=== PATIENT | female | born 1980 | race Asian ===

== ENCOUNTER 2018-02-13 06:13 | Day surgery (SDC) | payer OTHER ==
[2018-02-06 12:11] LABS: Urine Appearance CLEAR; Urine Bilirubin NEGATIVE (NEG); Urine Blood TRACE (NEG); Urine Color YELLOW; Urine Glucose NEGATIVE (NEG); Urine Protein NEGATIVE (NEG); Urine Urobilinogen 0.2 mg/dL (0.2-1.0); Urine pH 5.5 (5.0-7.0)
[2018-02-06 12:12] LABS: Absolute Lymphocytes (CBC) 1.8 K/uL (0.7-4.9); Absolute Monocytes 0.4 K/uL (0.1-1.3); Absolute Neutrophil 4.2 K/uL (1.8-8.0); Basophils % 0.5 % (0-1.3); Eosinophils % 1.8 % (0-4.4); Hematocrit 45.4 % (36.0-45.0); Lymphocytes % 27.9 % (15.3-44.8); MCH 29.8 pg (27.0-35.0); MCV 89.7 fL (80-100); MPV 7.7 fL (7.6-11.3); Monocytes % 6.3 % (3.3-12.3); RBC Red Blood Cell Count 5.06 M/uL (3.86-4.86)
[2018-02-06 12:13] LABS: Urine Microscopic Reflex ORDER UMIC
[2018-02-06 12:23] LABS: Urine Bacteria <20 /HPF (<20); Urine Culture Reflex Order NOT NEEDED; Urine RBC <5 /HPF (NONE SEEN)
--- NOTE | 2018-02-06 15:27 | EKG ---
Test Date: 2018-02-06 Test Time: 11:40:32 Thread Separator: ALIA MEASUREMENT RESULTS: Intervals: Rate: 79 OR: 164 QRSD: 82 QT: 374 QTc: 428 [place]: P: 44 OR: 164 QRS: 57 T: 11 INTERPRETIVE STATEMENTS: Normal sinus rhythm Normal ECG No previous ECG available for comparison Electronically Signed On 02-06-18 15:25:41 CDT by Bobby Mandujano
[2018-02-13 06:44] LABS: Specific Gravity 1.025 (1.005-1.030)
[2018-02-13] MEDS ORDERED: Ringers Lactate 1,000 ML IV ONE ×2 (06:46→10:43)
[2018-02-13] MEDS ORDERED: SCOPOLAMINE HYDROBROMIDE PATCH TD ONE (06:46)
[2018-02-13] MEDS ORDERED: PROPOFOL 200 MG/20 ML VIAL IV ONE (06:55)
[2018-02-13] MEDS ORDERED: ROCURONIUM 50 MG/5 ML VIAL IV ONE ×2 (06:56→09:20)
[2018-02-13] MEDS ORDERED: DEXAMETHASONE 10 MG/ML VIAL ONE (06:57)
[2018-02-13] MEDS ORDERED: FENTANYL CITR 250 MCG/5 ML ONE (06:57)
[2018-02-13] MEDS ORDERED: GLYCOPYRROLATE 0.2 MG/ML SYR ONE (06:57)
[2018-02-13] MEDS ORDERED: LIDOCAINE 1% MPF 2 ML AMPULE ONE (06:58)
[2018-02-13] MEDS ORDERED: MIDAZOLAM HCL 2 MG/2 ML INJ ONE (06:58)
[2018-02-13] MEDS ORDERED: NEOSTIGMINE 1 MG/ML -5 ML SYRINGE ONE (06:58)
[2018-02-13] MEDS ORDERED: ONDANSETRON HCL 40 MG/20 ML VIAL ONE ×2 (06:58→10:33)
[2018-02-13] MEDS ORDERED: NA CHLORIDE 0.9% 1,000 ML ONE ×2 (07:01→07:15)
[2018-02-13] MEDS ORDERED: VASOPRESSIN 20 UNIT/ML VIAL ONE ×2 (07:58→08:43)
[2018-02-13] MEDS ORDERED: NA CHLORIDE 0.9% 50 ML ONE (07:58)
[2018-02-13] MEDS ORDERED: NS 0.9% VIAL 10 ML ONE (08:45)
[2018-02-13] MEDS ORDERED: MORPHINE 10 MG/ML VIAL ONE (09:59)
[2018-02-13] MEDS ORDERED: KETOROLAC 30 MG/ML INJ ONE (10:32)
[2018-02-13] MEDS ORDERED: MEPERIDINE HCL 25 MG/0.5 ML ONE (11:45)
[2018-02-13] MEDS ORDERED: PROMETHAZINE 25 MG/ML VIAL ONE (11:45)
[2018-02-13] MEDS ORDERED: HYDROCODONE/APAP 5/325 MG TAB ONE (13:05)
--- NOTE | 2018-05-07 01:21 | OP ---
Date of Procedure: 02/13/2018 Surgeon: Gerri Salcedo MD Washer Blanket: Nancy Marinelli. Preoperative Diagnosis: Abnormal uterine bleeding (menorrhagia, leiomyomata). Postoperative Diagnosis: Abnormal uterine bleeding (menorrhagia, leiomyomata, and endometrial polyps ). Procedures Performed: 1.Hysteroscopy, polypectomy, dilation and curettage. 2.Laparoscopy and myomectomy, large compound myoma with multiple leiomyomata included within this. They had to be all removed through the same incision, placed in a specimen bag, and morcellated for e xtraction through the small ports. Anesthesia: General endotracheal. Estimated Blood Loss: 200. Urine Output: 200. Specimens: Endometrial polyps, curettings, and leiomyomata. Fluids In: 2 L of Ringer's lactate. Condition: Stable. Indications: The patient is 37-year-old with heavy menstrual bleeding, 0, decided to preserv e her fertility. This patient has been seen in the past as well and diagnosed with fibroids, which c мария back without any followup or treatment as recommended in the past. Ultrasound was repeated. Mul tiple fibroids were seen. No concerning other features seen on ultrasound. All the options were dis cussed with the patient including the possibility of an adenomyoma or leiomyoma, multiple leiomyomata , leading to her bleeding. However, endometrial sampling has not been done so at the time of the mark mectomy that we would do a hysteroscopy and endometrial sampling after cavity visualization and perfo rmance of myomectomy to preserve the uterus and fertility. She fully initiated that. If there was a n undiagnosed leiomyosarcoma, then this would need further surgery in the future; however for removal of the specimen, this would be placed in a specimen bag and removed; however, there is always a miller ce of spread from the leiomyosarcoma even while the removal of the myoma was being performed. Procedure In Detail: After consenting, the patient was taken back to the OR, placed in supine fashio n on the operating table and general anesthesia was given, she was placed in the dorsal lithotomy pos ition. Pelvic exam was performed. Uterus was found to be enlarged with a large leiomyoma. The abdo men, vulva, vagina, and perineum were all prepped and draped in a sterile fashion. Early was placed to drain the bladder and attached to a Early drainage bag. A speculum was used to expose the cervix. Anterior lip was grasped with 2 Allis clamps. Diagnostic hysteroscopy with a SlimLine hysteroscope and normal saline was conducted. Upon entering the uterine cavity, polyps were visualized. There w ere at least 3 polyps, 1 at the left cornual and the other 2 in the right lateral wall and posterior wall. So, decision was made to perform a polypectomy. The diagnostic sheath was changed to an opera tive sheath, and using the polyp scissors, the polyps were cut at their bases and they were extracted and then D and C were performed. Diagnostic VCare was introduced into the uterus at this time and t his area was draped and that was fixed in place. A 10 mm umbilical skin incision was made with a sca lpel. The fascia was incised with the scalpel that was well tagged on both sides with 0 Vicryl sutur e. Peritoneum was entered bluntly and S retractor was placed and Cary was introduced. The site of entry was checked. Liver and gallbladder appeared to be unremarkable. Multiple leiomyomata were se en on the uterus. The ovaries were both normal and the tubes appeared to be unremarkable. Most of t he myoma were posterior fundal mass and extension on the right side as well as others on the left. S o, plan was made to make an incision on the serosa and the muscle. There was also a fibroid that was on the anterior wall of the uterus, which had to be removed separately, so an incision was made on t he fundus. A monopolar fine tip needle device was used to make the incision all the way to the sheat h of the myoma. A 10 mm tenaculum was used through the suprapubic 10 mm port which was placed before the start of the procedure along with two 5 mm ports on each side, the right and left lower quadrant s. Then using the push-spread technique as well as using the monopolar, the myomata were all separat ed from the underlying tissues and they were removed. The base was cauterized with the help of the b ipolar. Monopolar needle was again used to make an incision transversely on the myoma in the lower s egment. This was also removed using the push-spread technique after all the myomata were removed. T here appeared to be an extension all the way into the endometrial cavity. A three-layer closure was done with the help of a PDS suture on the inner layer of the middle ear which was most of the myometr ium and then on the top in a continuous running locked fashion with the help of the barbed suture. A fter all this was done, Interceed was placed on the top. Thorough irrigation and suction were perfor med. There was 200 mL of blood. The removal of all myomata took some time and after everything was done, the specimens were placed inside the specimen retrieval bag and they were brought out through t he suprapubic incision with a slight extension and direct morcellation. The ports were removed under direct vision, gas was desufflated, and incision was closed after the specimens were retrieved. The fascia was closed at the suprapubic site with the help of a continuous running 0 Vicryl. The skin w as closed with the help of subcuticular sutures. The fascia at the umbilicus was closed with the hel p of a tag sutures placed for the placement of Cary. Then, the skin incisions on all the sort of 3 ports were closed with the help of 4-0 Monocryl. VCare was removed, Early was removed, and the mary ent was recovered from anesthesia after instrument, needle, and sponge counts x3 were correct at the end of the case. The patient tolerated the procedure well. She will follow up with me in 1 week for postop. No antibiotics were given. SCDs were started before the case was started. JACOB/TAMI Voice ID: [id number] Report ID: [id number]
== END 2018-02-13 14:50 | disposition home or self-care (01) ==
LOC: OR 06:13
PROVIDERS: ATTEND Obstetrics & Gynecology
PROC: 0UDB7ZX Extraction of Endometrium, Via Natural or Artificial Opening, Diagnostic (ICD-10-PCS; 2018-02-13)
PROC: 0UJD8ZZ Inspection of Uterus and Cervix, Via Natural or Artificial Opening Endoscopic (ICD-10-PCS; 2018-02-13)
PROC: 0UB94ZZ Excision of Uterus, Percutaneous Endoscopic Approach (ICD-10-PCS; 2018-02-13)
PROC: 0UB97ZX Excision of Uterus, Via Natural or Artificial Opening, Diagnostic (ICD-10-PCS; principal; 2018-02-13 07:30)
DX: D25.9 Leiomyoma of uterus, unspecified (principal); N84.0 Polyp of corpus uteri
CPT/HCPCS: 36415; 81003; 81015; 81025; 85025; 86850; 86900; 86901; 88305; 93005; J1100; J2001; J2175; J2250; J2405; J2550; J2710; J7030

== ENCOUNTER 2018-05-24 09:23 | Day surgery (SDC) | payer OTHER ==
[2018-05-21 14:11] LABS: Urine Appearance CLEAR; Urine Bilirubin NEGATIVE (NEG); Urine Blood NEGATIVE (NEG); Urine Color YELLOW; Urine Glucose NEGATIVE (NEG); Urine Protein NEGATIVE (NEG); Urine Urobilinogen 0.2 mg/dL (0.2-1.0); Urine pH 5.5 (5.0-7.0)
[2018-05-21 14:12] LABS: Urine Microscopic Reflex ORDER UMIC
[2018-05-21 14:24] LABS: Urine Bacteria <20 /HPF (<20); Urine RBC NONE SEEN /HPF (NONE SEEN)
[2018-05-21 14:25] LABS: Urine Culture Reflex Order REFLEXED
[2018-05-21 14:34] LABS: Absolute Lymphocytes (CBC) 2.1 K/uL (0.7-4.9); Absolute Monocytes 0.4 K/uL (0.1-1.3); Basophils % 0.2 % (0-1.3); Eosinophils % 1.9 % (0-4.4); Hematocrit 44.3 % (36.0-45.0); Lymphocytes % 24.1 % (15.3-44.8); MCH 30.8 pg (27.0-35.0); MCV 88.9 fL (80-100); MPV 7.7 fL (7.6-11.3); Monocytes % 4.6 % (3.3-12.3); RBC Red Blood Cell Count 4.98 M/uL (3.86-4.86)
[2018-05-24] MEDS ORDERED: Ringers Lactate 1,000 ML IV ONE ×2 (09:42→14:35)
[2018-05-24] MEDS ORDERED: SCOPOLAMINE HYDROBROMIDE PATCH TD ONE (09:42)
[2018-05-24] MEDS ORDERED: ROCURONIUM 50 MG/5 ML VIAL IV ONE (10:46)
[2018-05-24] MEDS ORDERED: FENTANYL CITR 250 MCG/5 ML ONE (10:46)
[2018-05-24] MEDS ORDERED: PROPOFOL 200 MG/20 ML VIAL IV ONE (10:46)
[2018-05-24] MEDS ORDERED: MIDAZOLAM HCL 2 MG/2 ML INJ ONE (10:46)
[2018-05-24] MEDS ORDERED: LIDOCAINE 1% MPF 2 ML AMPULE ONE (10:47)
[2018-05-24] MEDS ORDERED: ONDANSETRON HCL 40 MG/20 ML VIAL ONE (10:47)
[2018-05-24] MEDS: CEFAZOLIN/SWI 1gm 1 GM/10 ML SYR ONE ×2 (11:48→12:05)
[2018-05-24] MEDS ORDERED: NA CHLORIDE 0.9% 1,000 ML ONE (12:07)
[2018-05-24] MEDS ORDERED: KETOROLAC 30 MG/ML INJ ONE (13:57)
[2018-05-24] MEDS ORDERED: GLYCOPYRROLATE 0.2 MG/ML SYR ONE (14:07)
[2018-05-24] MEDS: MEPERIDINE HCL 50 MG/ML AMP ONE ×5 (14:27→15:03)
[2018-05-24] MEDS ORDERED: PROMETHAZINE 25 MG/ML VIAL ONE (14:55)
[2018-05-24] MEDS ORDERED: MEPERIDINE HCL 50 MG/ML AMP ONE (15:11)
[2018-05-24] MEDS ORDERED: HYDROCODONE/APAP 5/325 MG TAB ONE (16:00)
--- NOTE | 2018-05-25 01:27 | OP ---
Date of Procedure: 05/24/2018 Surgeon: Gerri Salcedo MD Spring Setter: Nancy Marinelli. Preoperative Diagnoses: Heavy menstrual bleeding, leiomyomata, and endometrial atypia. Postoperative Diagnoses: Heavy menstrual bleeding, leiomyomata, and endometrial atypia. Procedures Performed: Total laparoscopic hysterectomy, bilateral salpingectomy, pelvic washings. Anesthesia: General endotracheal. Specimens: Uterus and bilateral tubes, pelvic washings. Complications: No complications. Drains: No drains. Condition: Stable. Findings: Uterus with healing scar from the myomectomy. No abnormal adhesions. Peritoneum and omen adam completely unremarkable. Ovaries normal. Description Of Procedure: The patient is a 37-year-old who had heavy menstrual bleeding and had pres ented in the past with this, a few years ago, did not get her further evaluation of the bleeding, how ever, she had large fibroids at the time, and when she came back this time, her fibroids were larger, and she was desiring treatment, so she had a myomectomy at that time, of which a Fidencio and Yoel was perform ed. Since she was 37 only with nonsmoker, no endometrial sampling was performed prior to the myomect scarlett. At the time of the myomectomy, sampling was performed, and the patient was found to have an end ometrial hyperplasia with atypia, so she was counseled on the options of medical and surgical managem ent. She had in the past preferred to preserve her uterus for possible fertility; however, at this t kaleigh, she did not feel inclined after using 6 weeks of Megace without any bleeding despite the resolut ion of the symptoms to continue uterine preservation. So, she declined medical therapy and preferred to have a hysterectomy, so consented for her laparoscopic hysterectomy, pelvic washings, and bilater al salpingectomy. With ovarian preservation if there was malignancy found, then she would have a com pletion with oophorectomy and lymph node sampling. After having discussed all her options, benefits and risks, she was consented and brought to the OR, and 1 g of Ancef was given. She was taken back t o the OR, placed in a supine fashion. General anesthesia was given and placed in a dorsal lithotomy position. Arms were tucked by the side and all precautions were taken to prevent nerve compression i njuries. Pelvic exam was performed. Uterus was 6-8 weeks, mobile, no adnexal masses mobile. Abdomen, vulva, vagina, and perineum were prepped and draped in a sterile fashion. Early was placed to drain the bladder and a VCare medium was introduced in the uterus without any problems. Once the Early was connected to the LR bag, emptied 300 for drainage using cysto tubing. This was pl aced on the floor for drainage. This area was then draped. A 1 cm infraumbilical incision was used, the same incision as her prior surgery, to enter the abdomen . The fascia was incised and tagged with 0 Vicryl sutures. The posterior part of the fascia was not included and this was tagged for later on. I decided to close with a 0 Vicryl including all the tag sutures left in place. The peritoneal cavity was entered with sharp dissection with scissors. S-re tractor was placed. Cary introduced. Site of entry was checked and was normal. No evidence of an y trauma. Liver and gallbladder appeared to be unremarkable. Upper peritoneal surface is unremarkab le. Omentum was closely visualized. No evidence of any tumors or abnormal growths. The patient was placed into Trendelenburg. Uterus appeared to be completely free of adhesions. The myomectomy scar appeared to be healing well. The sutures were still visible; however, there was a small fibroid on the left anterior wall, about 3 cm. Ovaries, tubes completely normal. Bladder flap well visualized. A 5 mm left lower quadrant and 10 mm suprapubic ports were placed under direct vision. Then, survey was conducted. Ureters were undistorted in their anatomical location. So, the anterior broad ligame nt was opened up, the bladder flap was raised all the way from the left round ligament to the right r ound ligament. Then, the round ligament was taken down. Utero-ovarian was taken down. Mesosalpinx and the rest of the broad ligament were taken down. Then, posterior peritoneum was dissected all the way to the level of the uterosacral ligament. There was very little bit of endometriosis which appe ared to be very close to the uterine wall, so this was included within the serosa of the specimen dis secting laterally at the left uterosacral. The broad ligament was skeletonized, and on the opposite side, similar dissection was performed, and the vessels were skeletonized. There was also a small amount of endometriosis near the distal uteros acral ligament where the serosa was dissected and the endometriosis included with the serosal aspect of the uterus. Once this was done, no other endometriotic implants were visualized as far as I could tell. The anterior bladder flap was cleaned up using the monopolar hook blade. The vesicovaginal space was entered and the bladder was pushed inferiorly into this avascular space. A medial window was made m edial to the vessels on the right side and bipolar basket tip was used to take down these. Then, the cardinal ligaments were also taken down with the basket tip and cut down with the LigaSure. On the opposite side, similar dissection was performed making the window, taking down the vessels, and the c ardinal ligaments and the uterosacral ligaments were left attached to the apex of the vagina, and thi s attachment was left intact, and the peritoneum was incised to expose the cuff. Circumferential col potomy was performed with a monopolar hook blade and the specimen was detached and removed through th e vagina. An occluder bulb was placed in the vagina for pneumo occlusion. Then, thorough irrigation and suction were performed of the vaginal cuff. There was a small amount of bleeding from the vagin al cuff from the vaginal epithelium which was cauterized with the help of the LigaSure bipolar. Tubes were removed completely. Ovaries were left attached to the sidewall without any high risk of t orsion. We went on to perform closure of the colpotomy. Here, the bowel was falling onto the vaginal cuff, s o a 3-0 Vicryl suture was taken and placed through to epiploic area with the SH needle and the Jamie -Berry needle was introduced through the right upper quadrant with a 2 mm skin incision and the joseph ture was pulled through here for retraction and there was optimal retraction of the sigmoid colon wit hout any excessive retraction or trauma. So, then went on to finish the closures to simple 0 Vicryl sutures at both angles and 3 airvsh-qd-pajelh in the middle completely holding the posterior rectovag inal septum, anterior precervical fascia, all attached at the apex and the both angles were completel y hemostatic. Once all this was done, there was excellent hemostasis. Thorough irrigation and sucti on were performed. All the pedicles were checked and were unremarkable. The ovaries were preserved. The trocars were removed under direct vision after removing the stitch from the epiploicae and afte r verifying that they were completely hemostatic. After the all trocars removed, gas was desufflated, fascia was closed with [id number] by removin g the tagged sutures, then placing a 0 Vicryl including all fascial layers on both sides. Once this was done, then another zyqkca-ud-lzejc was placed at the suprapubic fascial incision site. Then, all skin incisions were closed with the help of a 4-0 Monocryl interrupted. Early and the bulb were rem nate. The patient was recovered from anesthesia. Instrument, needle, and sponge counts x3 were marilia ect at the end of the case. The patient tolerated the procedure well. EBL was minimal. She will fo llow up with me in 1 week. JACOB/TAMI Voice ID: [id number] Report ID: [id number]
== END 2018-05-24 17:12 | disposition home or self-care (01) ==
LOC: OR 09:23
PROVIDERS: ATTEND Obstetrics & Gynecology
PROC: 0UT74ZZ Resection of Bilateral Fallopian Tubes, Percutaneous Endoscopic Approach (ICD-10-PCS; 2018-05-24)
PROC: 0UT94ZZ Resection of Uterus, Percutaneous Endoscopic Approach (ICD-10-PCS; principal; 2018-05-24 11:30)
DX: N85.02 Endometrial intraepithelial neoplasia [EIN] (principal); D25.2 Subserosal leiomyoma of uterus; N85.9 Noninflammatory disorder of uterus, unspecified; N72 Inflammatory disease of cervix uteri; N85.00 Endometrial hyperplasia, unspecified
CPT/HCPCS: 36415; 81003; 81015; 81025; 85025; 86850; 86900; 86901; 87077; 87086; 87088; 87186; 88108; 88305; 88307; 88309; J0690; J2001; J2175; J2250; J2405; J2550; J7030

== ENCOUNTER 2019-02-16 21:53 | Emergency (ER) | payer OTHER ==
--- OUTSIDE RECORDS SUMMARY | 2019-02-16 21:55 | XMS REPORT ---
:1980 [facility] Address [address] [place] [address] Care Team Providers Name Role Phone Unavailable Unavailable Unavailable Problems This patient has no known problems. Allergies, Adverse Reactions, Alerts This patient has no known allergies or adverse reactions. Medications This patient has no known medications.
--- OUTSIDE RECORDS SUMMARY | 2019-02-16 21:55 | XMS REPORT ---
:1980 Author Organization [employer] Care Team Providers Name Role Phone Amanda Kim Provider Role Unavailable Allergies No Known Allergies Problems Problem Type Condition Code Onset Dates Condition Status Problem Abnormal laboratory test result R89.9 Active Problem Amenorrhea N91.2 Active Problem Acne L70.9 Active Problem Fibroid tumor D25.9 Active Problem Influenza vaccination declined Z28.21 Active Problem Carotidynia G90.01 Active Problem Abnormal thyroid function test R94.6 Active Problem Abnormal liver function K76.89 Active Problem GERD (gastroesophageal reflux K21.9 Active disease) Problem Pruritus of vagina L29.8 Active Problem Vitamin D deficiency E55.9 Active Medications No Known Medications Results No Known Results Summary Purpose eClinicalWorks Submission
--- OUTSIDE RECORDS SUMMARY | 2019-02-16 21:55 | XMS REPORT | Clinical Summary ---
:1980 Author Organization [facility] Address [address] [place] [address] Care Team Providers Name Role Phone Asked, No Pcp Primary Care Provider Unavailable Allergies No Known Allergies Medications Medication Sig Dispensed Refills Start Date End Date Status acetaminophen (TYLENOL) Take 500 mg by 0 Active 500 MG tablet mouth as needed for mild pain. Active Problems Not on file Encounters Date Type Specialty Care Team Description 09/20/2018 Anesthesia Event Gastroenterology Dhruth, Shailesh Olmstead MD 09/20/2018 Surgery Gastroenterology Kamla Randolph MD COLONOSCOPY 09/20/2018 Hospital Encounter Gastroenterology Kamla Randolph MD after 02/15/2018 Social History Tobacco Use Types Packs/Day Years Used Date Never Assessed Sex Assigned at Date Recorded Not on file Job Start Date Occupation Industry Not on file Not on file Not on file Travel History Travel Start Travel End No recent travel history available. Last Filed Vital Signs Vital Sign Reading Time Taken Blood Pressure 112/54 09/20/2018 10:40 AM [facility] Pulse 74 09/20/2018 10:40 AM [facility] Temperature 36.9 C (98.5 F) 09/20/2018 10:40 AM [facility] Respiratory Rate 20 09/20/2018 10:40 AM [facility] Oxygen Saturation 100% 09/20/2018 10:40 AM [facility] Inhaled Oxygen Concentration - - Weight 58.5 kg (129 lb) 09/20/2018 9:00 AM [facility] Height 152.4 cm (5') 09/20/2018 9:00 AM [facility] Body Mass Index 25.19 09/20/2018 9:00 AM [facility] Plan of Treatment Not on file Procedures Procedure Name Priority Date/Time Associated Diagnosis Comments COLONOSCOPY 09/20/2018 9:30 AM [facility] Rectal bleeding after 02/15/2018 Results Not on fileafter 02/15/2018 Advance Directives Patient has advance care planning documents on file. For more information, please contact:Hector [address] [place] [address]
--- OUTSIDE RECORDS SUMMARY | 2019-02-16 21:55 | XMS REPORT ---
:1980 [facility] Team Providers Name Role Phone Amanda Kim Provider Role Unavailable Allergies, Adverse Reactions, Alerts Substance Reaction Event Type N.K.D.A. Info Not Available Non Drug Allergy Problems Problem Type Condition Code Onset Dates Condition Status Problem Fibroid tumor D25.9 Active Problem Acne L70.9 Active Problem Abnormal laboratory test result R89.9 Active Assessment Influenza vaccination declined Z28.21 Active Assessment Well adult exam Z00.00 Active Problem Carotidynia G90.01 Active Problem Pruritus of vagina L29.8 Active Problem Influenza vaccination declined Z28.21 Active Problem GERD (gastroesophageal reflux K21.9 Active disease) Problem Amenorrhea N91.2 Active Problem Vitamin D deficiency E55.9 Active Problem Abnormal liver function K76.89 Active Medications Medication Code System Code Instructions Start End Date Status Dosage Date Vitamin D3 [facility] 33604473181 43315 UNIT Orally Active 1 capsule Results Name Result Date Reference Range Unit Abnormality Flag TSH ----TSH 0.30 55393152 mIU/L L COMPREHENSIVE METABOLIC PANEL(CMP) ----ALBUMIN/GLOBULIN 1.7 95220161 1.0-2.5 (calc) N RATIO ----GLOBULIN 2.9 44468441 1.9-3.7 g/dL (calc) N ----ALKALINE 64 17804251 33-115 U/L N PHOSPHATASE ----BILIRUBIN, TOTAL 0.8 54138743 0.2-1.2 mg/dL N ----CHLORIDE 101 87217173 98-110 mmol/L N ----ALT 50 92906378 6-29 U/L H ----POTASSIUM 4.1 56168329 3.5-5.3 mmol/L N ----AST 36 64477757 10-30 U/L H ----SODIUM 136 78854239 135-146 mmol/L N ----BUN/CREATININE 19 99603090 6-22 (calc) N RATIO ----eGFR 147 [id number] > OR=60 mL/min/1.73m2 N SYRIAN ----CALCIUM 10.0 00634043 8.6-10.2 mg/dL N ----CARBON DIOXIDE 25 20180921 20-32 mmol/L N ----ALBUMIN 4.8 20180921 3.6-5.1 g/dL N ----PROTEIN, TOTAL 7.7 20180921 6.1-8.1 g/dL N ----GLUCOSE 86 56647007 65-99 mg/dL N ----UREA NITROGEN (BUN) 9 20180921 7-25 mg/dL N ----CREATININE 0.47 66357152 0.50-1.10 mg/dL L ----eGFR NON-AFR. 127 60026695 > OR=60 mL/min/1.73m2 N SYRIAN LIPID PANEL ----NON HDL CHOLESTEROL 89 85647969 <130 mg/dL (calc) N ----LDL-CHOLESTEROL 73 22544985 mg/dL (calc) N ----CHOL/HDLC RATIO 2.5 60377660 <5.0 (calc) N ----HDL CHOLESTEROL 59 85184010 >50 mg/dL N ----TRIGLYCERIDES 76 58539692 <150 mg/dL N ----CHOLESTEROL, TOTAL 148 90223963 <200 mg/dL N Summary Purpose eClinicalWorks Submission
--- OUTSIDE RECORDS SUMMARY | 2019-02-16 21:56 | XMS REPORT ---
:1980 Author Organization [employer] Care Team Providers Name Role Phone Amanda Kim Provider Role Unavailable Allergies, Adverse Reactions, Alerts Substance Reaction Event Type N.K.D.A. Info Not Available Non Drug Allergy Problems Problem Type Condition Code Onset Dates Condition Status Problem Amenorrhea N91.2 Active Problem Abnormal liver function K76.89 Active Problem GERD (gastroesophageal reflux K21.9 Active disease) Problem Upper back pain M54.9 Active Problem Left upper arm pain M79.622 Active Problem Chest wall pain R07.89 Active Problem Carotidynia G90.01 Active Problem Vitamin D deficiency E55.9 Active Problem Abnormal thyroid function test R94.6 Active Problem Influenza vaccination declined Z28.21 Active Assessment Left upper arm pain M79.622 Active Assessment Upper back pain M54.9 Active Assessment Abnormal thyroid function test R94.6 Active Assessment Abnormal liver function K76.89 Active Problem Pruritus of vagina L29.8 Active Problem Fibroid tumor D25.9 Active Assessment Chest wall pain R07.89 Active Problem Abnormal laboratory test result R89.9 Active Problem Acne L70.9 Active Medications Medication Code System Code Instructions Start End Date Status Dosage Date Vitamin D3 [facility] 12365839801 60207 UNIT Orally Active 1 capsule Results No Known Results Summary Purpose eClinicalWorks Submission
--- OUTSIDE RECORDS SUMMARY | 2019-02-16 21:56 | XMS REPORT ---
[...] Problem Influenza vaccination declined Z28.21 Active Assessment Upper back pain M54.9 Active Assessment Other screening breast examination Z12.39 Active Assessment Abnormal thyroid function test R94.6 Active Assessment Abnormal liver function K76.89 Active Problem Pruritus of vagina L29.8 Active Problem Fibroid tumor D25.9 Active Assessment Chest wall pain R07.89 Active Problem Abnormal laboratory test result R89.9 Active Problem Acne L70.9 Active Medications Medication Code System Code Instructions Start End Date Status Dosage Date Vitamin D3 [facility] [id number] 56297 UNIT Orally Active 1 capsule Results No Known Results Summary Purpose [employer]ClinicalWorks Submission
--- OUTSIDE RECORDS SUMMARY | 2019-02-16 21:56 | XMS REPORT ---
:1980 Author Organization [employer] Care Team Providers Name Role Phone Amanda Kim Provider Role Unavailable Allergies, Adverse Reactions, Alerts Substance Reaction Event Type N.K.D.A. Info Not Available Non Drug Allergy Problems Problem Type Condition Code Onset Dates Condition Status Problem Abnormal laboratory test result R89.9 Active Problem Amenorrhea N91.2 Active Problem Acne L70.9 Active Assessment Abnormal thyroid function test R94.6 Active Assessment Abnormal liver function K76.89 Active Problem Fibroid tumor D25.9 Active Problem Influenza vaccination declined Z28.21 Active Problem Carotidynia G90.01 Active Problem Abnormal thyroid function test R94.6 Active Problem Abnormal liver function K76.89 Active Problem GERD (gastroesophageal reflux K21.9 Active disease) Problem Pruritus of vagina L29.8 Active Problem Vitamin D deficiency E55.9 Active Medications Medication Code System Code Instructions Start End Date Status Dosage Date Vitamin D3 [facility] [id number] 40148 UNIT Orally Active 1 capsule Results No Known Results Summary Purpose eClinicalWorks Submission
[2019-02-16 23:15] LABS: Urine Appearance CLOUDY; Urine Bilirubin NEGATIVE (NEG); Urine Blood 3+ (NEG); Urine Color RED; Urine Glucose NEGATIVE (NEG); Urine Protein 2+ (NEG); Urine Specific Gravity <=1.005 (1.005-1.030); Urine Urobilinogen 0.2 mg/dL (0.2-1.0)
[2019-02-16 23:18] LABS: Urine Microscopic Reflex NO UMIC
[2019-02-16 23:24] LABS: Urine Bacteria 20-50 /HPF (<20); Urine RBC TNTC /HPF (NONE SEEN)
[2019-02-16 23:25] LABS: Urine Culture Reflex Order REFLEXED
--- NOTE | 2019-02-17 00:38 | EDPHYS ---
Physician Documentation [facility] Name: Bridget Tolbert Age: 38 yrs Sex: Female : 1980 Arrival Date: 02/16/2019 Time: 21:57 Bed 17 Private MD: ED Physician Wally Reyes HPI: 02/17 00:30 This 38 yrs old Female presents to ER via Ambulatory with complaints of BLOOD IN cp UREINE. 00:30 The patient presents with urinary symptoms, dysuria, hematuria. Onset: The cp symptoms/episode began/occurred today. Associated signs and symptoms: Pertinent negatives: fever, vaginal bleeding, vaginal discharge, vomiting, low back pain. Severity of symptoms: in the emergency department the symptoms are unchanged, despite home interventions. 00:30 The patient's method of control includes hysterectomy. 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 - Social history:: Smoking status: Patient/guardian denies using tobacco. - Ebola Screening: : No symptoms or risks identified at this time. ROS: 00:33 Constitutional: Negative for body aches, chills, fever, poor PO intake. cp 00:33 Eyes: Negative for injury, pain, redness, and discharge. cp 00:33 ENT: Negative for drainage from ear(s), ear pain, sore throat, difficulty swallowing, difficulty handling secretions. 00:33 Cardiovascular: Negative for chest pain. 00:33 Respiratory: Negative for cough, shortness of breath, wheezing. 00:33 Abdomen/GI: Positive for abdominal pain, of the suprapubic area, Negative for vomiting, diarrhea, constipation. 00:33 Back: Negative for pain at rest, pain with movement. 00:33 : Positive for urinary symptoms, hematuria, Negative for vaginal bleeding, vaginal discharge. 00:33 Neuro: Negative for altered mental status, headache, weakness. 00:33 All other systems are negative. Exam: 00:35 Constitutional: The patient appears in no acute distress, alert, awake, non-toxic, well cp developed, well nourished. 00:35 Head/Face: Normocephalic, atraumatic. cp 00:35 Cardiovascular: Rate: tachycardic. 00:35 Respiratory: the patient does not display signs of respiratory distress, Respirations: normal. 00:35 Abdomen/GI: Inspection: abdomen appears normal, Palpation: soft, in all quadrants, mild abdominal tenderness, in the suprapubic area, rebound tenderness, is not appreciated, voluntary guarding, is not appreciated, involuntary guarding, is not appreciated. 00:35 Back: CVA tenderness, is absent. Vital Signs: 02/16 22:04 BP 134 / 81; Pulse 106; Resp 16; Temp 97.8; Pulse Ox 98% on R/A; Weight 59.42 kg; la1 Height 5 ft. 1 in. (154.94 cm); 02/17 01:16 Pulse 95; Resp 16 S; Pulse Ox 98% on R/A; jd3 02/16 22:04 Body Mass Index 24.75 (59.42 kg, 154.94 cm) la1 MDM: 02/16 23:57 Patient medically screened. cp 02/17 00:00 Differential diagnosis: urinary tract infection, pyelonephritis, sepsis. cp 00:37 Data reviewed: vital signs, nurses notes, lab test result(s), and as a result, I will cp discharge patient. 00:37 Counseling: I had a detailed discussion with the patient and/or guardian regarding: the cp historical points, exam findings, and any diagnostic results supporting the discharge/admit diagnosis, lab results, to return to the emergency department if symptoms worsen or persist or if there are any questions or concerns that arise at home. Response to treatment: the patient's symptoms have mildly improved after treatment, and as a result, I will discharge patient. 02/16 23:00 Order name: Urine Microscopic Only jd3 02/16 23:00 Order name: Urinalysis j 02/16 23:27 Order name: Urine Culture EDMS Administered Medications: 00:59 Drug: Rocephin (cefTRIAXone) 1 grams Route: IM; Site: right gluteus; jd3 01:17 Follow up: Response: No adverse reaction jd3 Disposition: 02/17/19 00:37 Discharged to Home. Impression: Urinary tract infection, site not specified. - Condition is Stable. - Discharge Instructions: Urinary Tract Infection, Adult. - Prescriptions for Ibuprofen 800 mg Oral Tablet - take 1 tablet by ORAL route every 8 hours As needed take with food; 30 tablet. Zofran 4 mg Oral Tablet - take 1 tablet by ORAL route every 12 hours As needed; 20 tablet. Bactrim DS 800- 160 mg Oral Tablet - take 1 tablet by ORAL route every 12 hours for 7 days; 14 tablet. - Medication Reconciliation Form, Thank You Letter, Antibiotic Education, Prescription Opioid Use form. - Follow up: Private Physician; When: 2 - 3 days; Reason: Recheck today's complaints. - Problem is new. - Symptoms have improved. Signatures: Dispatcher [employer] [facility] Rui Kahn RN RN la1 Jose Juan PA PA cp Davies, Jonathon, RN RN jd3 Corrections: (The following items were deleted from the chart) 00:36 00:35 Test, Urine ordered. [facility] EDKS 00:43 00:28 Urine Test ordered. cp jd3 00:43 00:38 Test, Urine ordered. [facility] EDKS 01:18 00:37 02/17/2019 00:37 Discharged to Home. Impression: Urinary tract infection, site jd3 not specified. Condition is Stable. Forms are Medication Reconciliation Form, Thank You Letter, Antibiotic Education, Prescription Opioid Use. Follow up: Private Physician; When: 2 - 3 days; Reason: Recheck today's complaints. Problem is new. Symptoms have improved. cp
--- NOTE | 2019-02-17 00:38 | ER ---
Nurse's Notes [facility] Name: Bridget Tolbert Age: 38 yrs Sex: Female : 1980 Arrival Date: 02/16/2019 Time: 21:57 Bed 17 Private MD: Diagnosis: Urinary tract infection, site not specified Presentation: 02/16 22:04 Presenting complaint: Patient states: I am having blood in my urine and pain when when la1 I pee just today. Transition of care: patient was not received from another setting of care. Onset of symptoms was February 16, 2019. Risk Assessment: Do you want to hurt yourself or someone else? Patient reports no desire to harm self or others. Initial Sepsis Screen: Does the patient meet any 2 criteria? No. Patient's initial sepsis screen is negative. Does the patient have a suspected source of infection? No. Patient's initial sepsis screen is negative. Care prior to arrival: None. 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 - Social history:: Smoking status: Patient/guardian denies using tobacco. - Ebola Screening: : No symptoms or risks identified at this time. Screenin/25 23:07 Abuse screen: Denies threats or abuse. Nutritional screening: No deficits noted. jd3 Tuberculosis screening: No symptoms or risk factors identified. Fall Risk Ambulatory Aid- None/Bed Rest/Nurse Assist (0 pts). Gait- Normal/Bed Rest/Wheelchair (0 pts) Mental Status- Oriented to own ability (0 pts). Total Wilks Fall Scale indicates No Risk (0-24 pts). Assessment: 23:05 General: Appears uncomfortable, Behavior is calm, cooperative, appropriate for age. jd3 Pain: Complains of pain in groin Quality of pain is described as pressure. Neuro: Level of Consciousness is awake, alert, obeys commands, Oriented to person, place, time, situation, Appropriate for age. Cardiovascular: Capillary refill < 3 seconds Patient's skin is warm and dry. Respiratory: Airway is patent Respiratory effort is even, unlabored, Respiratory pattern is regular, symmetrical. GI: No signs and/or symptoms were reported involving the gastrointestinal system. : Urine is blood tinged, Reports burning with urination, urinary frequency, vaginal itching. EENT: No signs and/or symptoms were reported regarding the EENT system. Derm: Skin is intact, Skin is dry, Skin is normal, Skin temperature is warm. Musculoskeletal: Circulation, motion, and sensation intact. Range of motion: intact in all extremities. 02/17 00:59 Reassessment: Patient appears in no apparent distress at this time. Patient and/or jd3 family updated on plan of care and expected duration. Pain level reassessed. Patient is alert, oriented x 3, equal unlabored respirations, skin warm/dry/pink. 01:16 Reassessment: Patient appears in no apparent distress at this time. Patient and/or jd3 family updated on plan of care and expected duration. Pain level reassessed. Patient is alert, oriented x 3, equal unlabored respirations, skin warm/dry/pink. Vital Signs: 02/16 22:04 BP 134 / 81; Pulse 106; Resp 16; Temp 97.8; Pulse Ox 98% on R/A; Weight 59.42 kg; la1 Height 5 ft. 1 in. (154.94 cm); 02/17 01:16 Pulse 95; Resp 16 S; Pulse Ox 98% on R/A; jd3 02/16 22:04 Body Mass Index 24.75 (59.42 kg, 154.94 cm) la1 ED Course: 02/16 21:57 Patient arrived in ED. es 22:04 Triage completed. la1 22:05 Arm band placed on right wrist. la1 22:53 Rodney Fernandez, RN is Primary Nurse. jd3 23:07 Patient has correct armband on for positive identification. Bed in low position. Call jd3 light in reach. Side rails up X 1. Adult w/ patient. 23:57 Jose Juan PA is PHCP. cp 23:57 Wally Reyes MD is Attending Physician. cp 02/17 00:59 No provider procedures requiring assistance completed. Patient did not have IV access jd3 during this emergency room visit. Administered Medications: 00:59 Drug: Rocephin (cefTRIAXone) 1 grams Route: IM; Site: right gluteus; jd3 01:17 Follow up: Response: No adverse reaction jd3 Outcome: 00:37 Discharge ordered by . cp 01:16 Discharged to home ambulatory, with family. jd3 01:16 Condition: stable 01:16 Discharge instructions given to patient, family, Instructed on discharge instructions, follow up and referral plans. medication usage, Demonstrated understanding of instructions, follow-up care, medications, Prescriptions given X 3. 01:18 Patient left the ED. jd3 Addendum: 02/20/2019 07:57 Addendum: Culture Results: Positive urine culture. No further action required. Bacteria i w sensitive to prescribed antibiotic. Signatures: Raina Huitron Irene, ANALI RN iw Rui Kahn RN RN la1 Jose Juan PA PA cp Davies, Jonathon, RN RN jd3
[2019-02-17] MEDS ORDERED: CEFTRIAXONE 1000 MG/VIAL ONE (01:01)
== END 2019-02-17 01:18 | disposition home or self-care (01) ==
LOC: ER 21:53
DX: N39.0 Urinary tract infection, site not specified (principal)
CPT/HCPCS: 81003; 81015; 87077; 87086; 87088; 87186; 96372; 99283

== ENCOUNTER → 2019-07-08 | Day surgery (SDC) | payer OTHER ==
--- NOTE | 2019-07-08 12:17 | RAD REPORT ---
EXAM DESCRIPTION: US - Fine Needle Asp Breast Guide - 07/08/2019 11:06 am CLINICAL HISTORY: Mass 6 o'clock left breast COMPARISON: Ultrasound study June 19, 2019 FINDINGS: The patient presents for ultrasound-guided breast fine-needle aspiration of a complex cyst in the 6-7 o'clock left breast. The procedure, risks and alternatives were discussed with the patien t in detail. After answering all questions, oral and written consent were obtained. Time out proced ure was performed . The patient had no contraindicated allergy or medication history. Preliminary imaging again identified the mass in question. The skin was prepped and draped in the us ual sterile fashion. Skin and deeper tissues were anesthetized with 1 percent lidocaine. Under [facility] t sonographic visualization, a 25 gauge needle was advanced into the mass. Fine-needle aspiration was performed using multiple to and fro excursions of the needle tip through the more solid-appearing co mponent of this complex cyst. FNA procedure was repeated with an additional 25 gauge needle. A 22 gau ge needle was then used to try to collapse the cyst. Blood or cellular debris precluded collapse of t he cyst. An 18 gauge needle was then used. The cyst was seen to collapse with aspiration using 18 gau ge needle. All aspirations were performed using sonographic guidance. All obtained material was given to pathology for cytology/histology assessment. At the conclusion of the procedure there was no evidence for hematoma in the left breast. Hemostasis was obtained at the s kin puncture site. A sterile bandage was placed. Postprocedure care and precaution instructions were given to the patient. The patient tolerated the procedure well without complications. IMPRESSION: Ultrasound-guided fine-needle aspiration was performed of the complex cyst in the 6 o'cl ock region of the left breast. There were no immediate complications. Patient tolerated procedure well. All obtained material was given to pathology for cytology/ histology assessment.
== END ==
LOC: DS 09:45
PROVIDERS: ATTEND Surgery
PROC: 0H9U3ZX Drainage of Left Breast, Percutaneous Approach, Diagnostic (ICD-10-PCS; principal; 2019-07-08)
DX: N63.21 Unspecified lump in the left breast, upper outer quadrant (principal)
CPT/HCPCS: 10005; 76942; 88162

== ENCOUNTER 2020-02-26 08:20 | Day surgery (SDC) | payer OTHER ==
[2020-02-24 16:49] LABS: Absolute Lymphocytes (CBC) 2.5 K/uL (0.7-4.9); Basophils % 0.2 % (0-1.3); Hematocrit 43.9 % (36.0-45.0); Lymphocytes % 29.9 % (15.3-44.8); MPV 8.1 fL (7.6-11.3)
[2020-02-26] MEDS ORDERED: CEFAZOLIN/SWI 1gm 1 GM/10 ML SYR ONE (08:48)
[2020-02-26] MEDS ORDERED: Ringers Lactate 1,000 ML IV ONE (08:48)
--- OUTSIDE RECORDS SUMMARY | 2020-02-26 09:15 | XMS REPORT | Continuity of Care Document ---
:1980 Author Organization [facility] t Address [address] [place] [address] Care Team Providers Name Role Phone Asked, Pcp Primary Care Physician Unavailable Problems Condition Condition Condition Status Onset Resolution Last Treating Co mments Source Name Details Category Date Date Treatment Clinician Date Fibroid Fibroid Problem Active [facility] Acne Acne Problem [facility] Abnormal Abnormal Problem Active [facility] laboratory Mandie kes - test test [facility] result result l [facility] Influenza Influenza Problem Active [facility] vaccinatio vaccinatio Mandie kes - n declined n declined Me moria l [facility] Carotidyni Carotidyni Problem Active [facility] Pruritus Pruritus Problem [facility] of vagina of vagina [facility] GERD GERD Problem Active [facility] (gastroeso (gastroeso Mandie kes - phageal phageal Memoria reflux reflux l disease) disease) Outpat i ent Clinics Amenorrhea Amenorrhea Problem Active [facility] Vitamin D Vitamin D Problem Active [facility] deficiency deficiency Mandie k[facility] Abnormal Abnormal Problem Active [facility] liver liver [facility] function function [facility] Abnormal Abnormal Problem Active [facility] thyroid thyroid [facility] function [facility] a test test l [facility] Upper back Upper back Problem Active [facility] pain pain [facility] Left upper Left upper Problem Active [facility] arm pain arm pain [facility] Chest wall Chest wall Problem Active [facility] pain pain [facility] Soreness Soreness Problem Active [facility] breast breast [facility] Vaginal Vaginal Problem Active [facility] itching itching [facility] Pain in Pain in Diagnosis Active [facility] left foot left foot [facility] Well adult Well adult Diagnosis Active [facility] exam exam [facility] Bilateral Bilateral Diagnosis Active [facility] hand hand [facility] numbness numbness Memori a l [facility] Pain in Pain in Diagnosis Active [facility] right foot right foot Mandie k[facility] - [facility] Allergies, Adverse Reactions, Alerts This patient has no known allergies or adverse reactions. Social History Social Habit Start Date Stop Date Quantity Comments Source Sex Assigned At Ulices Kelley Medications Ordered Filled Start Stop Current Ordering Indication Dosage Frequency Signature Comments Components Source Medication Medication Date Date Medication? Clinician (SIG) Name Name acetaminoph 2017-09 Yes 500mg Take 500 [place] en 2-27 mg by Methodi (TYLENOL) 11:21: mouth as st 500 MG 00 needed for tablet mild pain. Vitamin D3 Vitamin D3 Yes Amanda [address] [facility] Procedures This patient has no known procedures. Encounters Start End Encounter Admission Attending Care Care Encounter Source Date/Time Date/Time Type Type Clinicians Facility Department ID 2019-11-22 2019-11-22 [facility] [id number] [facility] 09:30[facility]00 09:30:00 [facility] Medicine Medicine [facility] 2019-07-05 2019-07-05 [facility] [id number] [facility] 15[facility]00:00 15:00:00 [facility] 2019-01-04 2019-01-04 [facility] [id number] [facility] 16:20:00 16:20:00 [facility] 2018-11-16 2018-11-16 [facility] [id number] 09:00:00 09:00:00 [facility] Medicine Outpati ent Clinics 2018-10-18 2018-10-18 [facility] [id number] [address] 15:27:00 15:27:00 [facility] Outpati ent Clinics 2018-10-05 2018-10-05 [facility] [id number] 16:00:00 16:00:00 [facility] Medicine Outpati ent Clinics 2018-09-22 2018-09-22 [facility] [id number] [address] 04:20:00 04:20:00 [facility] Medicine Outpati ent Clinics 2018-09-14 2018-09-14 [facility] [id number] 10[facility]45:00 10:45:00 [facility] Results This patient has no known results.
--- OUTSIDE RECORDS SUMMARY | 2020-02-26 09:15 | XMS REPORT | Clinical Summary ---
:1980 Author Organization [facility] Address [address] [place] [address] Care Team Providers Name Role Phone Asked, Pcp Primary Care Provider Unavailable Allergies No Known Allergies Medications Medication Sig Dispensed Refills Start Date End Date Status acetaminophen (TYLENOL) Take 500 mg by 0 Active 500 MG tablet mouth as needed for mild pain. Active Problems Not on file Social History Tobacco Use Types Packs/Day Years Used Date Never Assessed Sex Assigned at Date Recorded Not on file Job Start Date Occupation Industry Not on file Not on file Not on file Travel History Travel Start Travel End No recent travel history available. 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
[2020-02-26] MEDS ORDERED: LIDOCAINE 2% MPF 5 ML VIAL ONE (09:54)
[2020-02-26] MEDS ORDERED: dexAMETHasone 10 MG/ML VIAL ONE (09:54)
[2020-02-26] MEDS ORDERED: FENTANYL CITR 100 MCG/2 ML ONE (09:54)
[2020-02-26] MEDS ORDERED: MIDAZOLAM HCL 2 MG/2 ML INJ ONE (09:54)
[2020-02-26] MEDS ORDERED: propofoL 200 MG/20 ML VIAL IV ONE (09:54)
[2020-02-26] MEDS ORDERED: ONDANSETRON 4 MG/2 ML VIAL ONE (09:55)
[2020-02-26] MEDS ORDERED: KETOROLAC 30 MG/ML INJ ONE (10:48)
[2020-02-26 11:37] VITALS: O2SAT 100
[2020-02-26] MEDS ORDERED: HYDROCODONE/APAP 7.5/325 MG TAB ONE (12:52)
--- NOTE | 2020-02-26 13:11 | RAD REPORT ---
EXAM DESCRIPTION: US - Surgical Specimen - 02/26/2020 11:04 am CLINICAL HISTORY: Breast mass IMPRESSION: The complex cystic mass lies within the resected breast tissue specimen
[2020-02-26 14:01] VITALS: BP 126/75; TEMP 97.6
--- NOTE | 2020-02-26 14:52 | OP ---
Date of Procedure: 02/26/2020 Surgeon: Celio Kohli MD Preoperative Diagnosis: Left breast mass complex cyst. Postoperative Diagnosis: Left breast mass complex cyst. Procedure: Needle localization and excision of left breast mass. Estimated Blood Loss: Minimal. Specimens: Left breast mass. Findings: As above. Anesthesia: General. Complications: None. Patient tolerated the procedure in stable condition and taken to Recovery in good general condition. Procedure In Detail: Patient was brought to the OR and placed in supine position. Genitalia were pr epped draped in the usual sterile fashion. Patient had a needle localization which was done by Dr. Dandy smith and the tip of the needle was around 7 o'clock to 8 o'clock position of the left breast. A 3 cm transverse incision was made at approximate 7:30 position. Subcutaneous tissue was divided. Tra ct of the needle was identified, at tip of the needle there was a cyst present, excised and sent to r adiology. Confirmation obtained and then wound irrigated and bleeding controlled with cautery. 3-0 chromic used to approximate the subcutaneous tissue and close the skin. Sterile dressing was applied . The patient was awakened and taken to Recovery in good condition. Discharge Note: The patient will go to day surgery and home when stable. Disposition: Home. Condition: Stable. Discharge Instructions: Resume home medications and diet. Activities as tolerated. No heavy liftin g. Remove outer dressing in 2 days. Shower. Keep wound clean and dry. Follow up in my office in a week. Call for appointment. Tylenol No. 3 one tablet p.o. q.4 p.r.n. pain. Keep Steri-Strips on a t all times. /MODL Voice ID: [id number] Report ID: [id number]
--- NOTE | 2020-02-26 16:50 | RAD REPORT ---
EXAM DESCRIPTION: US - Fine Needle Asp Breast Guide - 02/26/2020 10:25 am CLINICAL HISTORY: Breast mass. COMPARISON: January 2020 ultrasound. TECHNIQUE: The skin, subcutaneous tissues and breast tissues were anesthetized with Lidocaine. Under sonographic guidance a needle placed into the 1 centimeter lobulated complex cystic mass within the lower periareolar region of the left breast. Through this a 5 cm Kopan's hook wire advanced and the n eedle withdrawn. The patient then left for the surgical department. IMPRESSION: Ultrasound-guided needle wire localization of a complex cystic mass within the left chip st.
== END 2020-02-26 13:40 | disposition home or self-care (01) ==
LOC: RAD 08:20
PROVIDERS: ATTEND Surgery
PROC: 0HBU0ZZ Excision of Left Breast, Open Approach (ICD-10-PCS; principal; 2020-02-26 09:45)
DX: N60.02 Solitary cyst of left breast (principal); Z11.59 Encounter for screening for other viral diseases
CPT/HCPCS: 19125; 10005 ×2; 85025; 36415; 88305; 76942; 76098; J2704; J2250; J3010; J1100; J0690; J7120; J2405